=== PATIENT | female | born 1965 | race African-American/Black ===

== ENCOUNTER 2017-06-14 22:31 | Emergency (ER) | payer BC | END 2017-06-14 23:33 | disposition left against medical advice (07) | LOC: ERS 22:31 | DX: Z53.21 Procedure and treatment not carried out due to patient leaving prior to being seen by health care provider (principal) ==

== ENCOUNTER 2017-11-04 22:04 | Emergency (ER) | payer SELFPAY ==
[2017-11-04] MEDS ORDERED: Ketorolac Tromethamine 30 MG/ML VIAL ONE (22:58)
[2017-11-04 23:06] LABS: #Basophils 0.1 thou/uL (0.0-0.2); #Eosinphils 0.1 thou/uL (0.0-0.7); #Lymphocytes 2.8 thou/uL (1.20-3.40); #Monocytes 1.1 thou/uL (0.11-0.59); #Neutrophils 3.7 thou/uL (1.40-6.50); %Basophils 1.1 % (0.0-1.0); %Eosinophils 1.4 % (0.0-10.0); %Lymphocytes 36.6 % (21.0-51.0); %Monocytes 13.7 % (0.0-10.0); %Neutrophils 47.1 % (42.0-75.0); Hemoglobin 14.2 g/dL (12.0-16.0); Mean Corpuscular HGB CONC 33.7 g/dL (32.0-36.0); Mean Corpuscular Hemoglobin 31.7 pg (27.0-31.0); Mean Platelet Volume 6.8 fL (7.4-10.4); Platelet Count 284 thou/uL (130-400); RBC Distribution Width 12.8 % (11.5-14.5); White Blood Cell (WBC) Count 7.8 thou/uL (4.8-10.8)
--- NOTE | 2017-11-04 23:15 | RAD ---
PORTABLE CHEST ONE VIEW: 11/04/17 at 11:03 p.m. HISTORY: Cough and shortness of breath. FINDINGS: Comparison is made with the exam of 08/26/15. The heart size is normal. The lungs are expanded without focal areas of consolidation, pneumothorax o r pleural effusions. IMPRESSION: No radiographic evidence of acute cardiopulmonary process. POS: [facility]
[2017-11-04 23:30] LABS: Anion Gap 15 mmol/L (10-20); BUN (Urea Nitrogen) 13 mg/dL (9.8-20.1); CK (CPK) 130 U/L (29-168); Calc. Creatinine Clearance 0 mL/min (70-130); Calcium 9.5 mg/dL (7.8-10.44); Carbon Dioxide 22 mmol/L (22-29); Chloride 106 mmol/L (98-107); Estimated GFR-MDRD 90; Glucose 111 mg/dL (70-105); Potassium 3.8 mmol/L (3.5-5.1); Sodium 139 mmol/L (136-145)
[2017-11-04 23:38] LABS: Troponin I Less than 0.010 ng/mL (< 0.028)
--- NOTE | 2017-11-11 13:12 | EKG ---
Test Reason : Blood Pressure : / mmHG Vent. Rate : 095 BPM Atrial Rate : 095 BPM P-R Int : 138 ms QRS Dur : 066 ms QT Int : 374 ms P-R-T Axes : 055 055 022 degrees QTc Int : 469 ms Normal sinus rhythm Possible Left atrial enlargement Prolonged QT Abnormal ECG Confirmed by ELMIRA WATKINS ([id number]), sports editor GINO VEGA ([id number]) on 11/11/2017 1:11:58 PM Referred By: Confirmed By:ELMIRA WATKINS
== END 2017-11-04 23:50 | disposition home or self-care (01) ==
LOC: ERS 22:04
DX: J40 Bronchitis, not specified as acute or chronic (principal); R07.89 Other chest pain; G43.909 Migraine, unspecified, not intractable, without status migrainosus; E78.5 Hyperlipidemia, unspecified; I10 Essential (primary) hypertension; F17.210 Nicotine dependence, cigarettes, uncomplicated; Z71.6 Tobacco abuse counseling; Z79.899 Other long term (current) drug therapy
CPT/HCPCS: 71045; 80048; 82550; 84484; 85025; 93005; 94640; 96374; 99406; J1885; J7620

== ENCOUNTER 2018-07-30 19:15 | Observation (INO) | payer BC, SELFPAY ==
[~2018-07-30 19:15] MED LIST: ISOVUE-370 76%-LOCM 1 ML ONE
[2018-07-30] MEDS ORDERED: Dexamethasone 4 mg/ml Vial ONE (19:59)
[2018-07-30] MEDS ORDERED: Ketorolac Tromethamine 30 MG/ML VIAL ONE (19:59)
[2018-07-30 20:26] LABS: Hemoglobin 12.8 g/dL (12.0-16.0); Mean Corpuscular HGB CONC 32.9 g/dL (32.0-36.0); Mean Corpuscular Volume 94.2 fL (78.0-98.0); Mean Platelet Volume 7.6 fL (7.4-10.4); Platelet Count 356 thou/uL (130-400); RBC Distribution Width 11.9 % (11.5-14.5); Red Blood Cell (RBC) Count 4.12 mill/uL (4.20-5.40); White Blood Cell (WBC) Count 20.2 thou/uL (4.8-10.8)
[2018-07-30 20:46] LABS: ALT (SGPT) 15 U/L (8-55); AST (SGOT) 12 U/L (5-34); Albumin 3.9 g/dL (3.5-5.0); Alkaline Phosphatase 83 U/L (40-150); Anion Gap 10 mmol/L (10-20); BUN (Urea Nitrogen) 10 mg/dL (9.8-20.1); Bilirubin, Total 0.2 mg/dL (0.2-1.2); Calc. Creatinine Clearance 0 mL/min (70-130); Calcium 9.4 mg/dL (7.8-10.44); Carbon Dioxide 25 mmol/L (22-29); Chloride 104 mmol/L (98-107); Estimated GFR-MDRD Greater than 90; Globulin 4.4 g/dL (2.4-3.5); Glucose 230 mg/dL (70-105); Potassium 3.8 mmol/L (3.5-5.1); Protein, Total 8.3 g/dL (6.0-8.3); Sodium 135 mmol/L (136-145)
[2018-07-30 20:50] LABS: Lymphocytes 24 % (21-51); MDiff Complete? YES; Monocytes 5 % (0-10); Neutrophil 71 % (42-75); PLT Morphology Comment Appears Adequate; RBC Morphology Normal
--- NOTE | 2018-07-30 21:23 | RAD ---
PA AND LATERAL CHEST: HISTORY: Difficulty breathing. FINDINGS: Heart size appears slightly enlarged. Aorta is mildly tortuous. Lungs are clear of infiltrates. Th ere are no signs of failure. IMPRESSION: Minimal cardiomegaly. POS: [facility]
--- NOTE | 2018-07-30 21:28 | CT ---
CT NECK PERFORMED WITH INTRAVENOUS CONTRAST ENHANCEMENT: HISTORY: Sore throat. Right ear pain. FINDINGS: The visualized brain parenchyma is unremarkable. There is what appears to be an empty sella incident ally noted. The parotid and submandibular glands are unremarkable. There is some moderate bilateral symmetric ju gular chain adenopathy, probably reactive in nature. The tonsils appear enlarged. This includes the tonsillar pillars and lingular tonsil, as well as the adenoid regions, causing some slight narrowing to the transverse dimension of the airway at this lev el. The epiglottis is normal in appearance. At the level of the vocal cords, there is a somewhat low attenuation mass, which is probably a polyp. An ENT consultation would be recommended. This does narrow the airway at the level of the true and false cords. The thyroid gland is unremarkable. The lung apices are clear. IMPRESSION: 1. Hypertrophied appearance to the tonsils and adenoid region without signs of any abscess. Parapha ryngeal spaces are clear. 2. Vocal cord lesion, which appears to probably represent a polyp. ENT consultation is recommended. This does narrow the airway at the true and false cord level. POS: [facility]
[2018-07-30] MEDS ORDERED: Acetaminophen 1,000 MG in Premix Bag 1 BAG IVPB SCH (23:30)
[2018-07-31 00:24] VITALS: BMI 46.3
[2018-07-31] MEDS ORDERED: Ondansetron PF 4 MG/2 ML Vial IVP PRN (00:27)
[2018-07-31] MEDS ORDERED: Acetaminophen 325 MG TAB PO PRN (00:27)
[2018-07-31] MEDS ORDERED: Ondansetron ODT 4 MG TAB SL PRN (00:27)
[2018-07-31] MEDS: Sodium Chloride 0.9% 1,000 ML IV SCH ×2 (01:08→09:36)
[2018-07-31] MEDS ORDERED: Chloraseptic Spray 180 ml Bottle PO PRN (01:57)
[2018-07-31] MEDS: Cepastat Lozenges 1 LOZ PO PRN ×2 (09:36→15:17)
[2018-07-31] MEDS ORDERED: AMOXicillin 250 MG CAP PO SCH ×2 (12:00→15:00)
[2018-07-31] MEDS ORDERED: Dexamethasone 1 MG TAB PO SCH ×2 (12:00→17:00)
[2018-07-31 15:01] VITALS: BP 146/75; TEMP 97.8
[2018-08-01] MEDS ORDERED: metFORMIN 500 MG TAB PO SCH (08:00)
--- NOTE | 2018-08-02 06:23 | SS ---
DATE OF ADMISSION: 07/31/2018 DATE OF DISCHARGE: 07/31/2018 PRIMARY CARE PHYSICIAN: She sees provider in [place]. CONSULTANTS: None. PROCEDURE PERFORMED: The patient had a soft tissue neck CT, it showed hypertrophied appearance to the tonsils and adenoid regions without any signs of any abscess. Parapharyngeal spaces are clear. Two vocal cord lesions, which appears to probably represent a polyp. ENT consultation is recommended. Does narrow of the airway of the true and false cord level. The patient had a chest x-ray; impression: Minimal cardiomegaly. CHIEF COMPLAINT: Sore throat, right ear pain and stridor. HOSPITAL COURSE: Ms. Willoughby is a pleasant 53-year-old female, who presented to the emergency room on 07/30/2018 with a complaint of sore throat and right ear pain for the last 2 weeks. Reports on day of admission, she felt like she could not catch her breath. She denies history of any breathing issues. When symptoms initially began, she had a fever and vomiting. Reports that she was a half a pack to a pack a day smoker and quit 7 days ago, reports increase of cough. The patient had a soft tissue CT scan of the neck with findings above. Had some stridor in the emergency room and was given a dose of decadron and some Toradol and felt better. The patient was admitted for observation and further management. The patient was seen and reports that she feels better and has some mild expiratory wheezing. Denies any current nausea or vomiting. Dr. Gonzalez was contacted and stated that he wanted to see the patient in the office. Appointment was scheduled for the following day at 08:15 in the morning, this information was relayed to the patient. The patient was sent home with some amoxicillin. The patient states that she lost her health insurance and has been unable to take any of her blood pressure medications or her statins. She was also noted to have high blood sugar here after the decadron was given, so some metformin was added while her blood sugars remain high. The patient's discharge plan was discussed with Dr. Lara, who agreed with the discharge plan. PAST MEDICAL HISTORY: Includes stomach ulcers, migraines, hyperlipidemia, hypertension, and asthma. PAST SURGICAL HISTORY: None. PSYCH HISTORY: None. SOCIAL HISTORY: Denies any alcohol use. Denies any drug use. Reports she was a 1 to 2 pack a day smoker, quit 7 days ago. CURRENT MEDICATIONS: She is supposed to take the following medications, but has ran out of prescription and has not been to a primary care doctor. 1. Aspirin 81 mg p.o. daily will be continued. 2. Nexium 20 mg p.o. daily. 3. Coreg 6.25 mg p.o. b.i.d. 4. Lisinopril 5 mg p.o. b.i.d. 5. Pravastatin 40 mg p.o. at bedtime. Added on this visit were: 1. Amoxicillin 500 mg p.o. t.i.d. x10 days. 2. Metformin 500 mg p.o. q.a.m. while blood sugars are high due to steroid use. ALLERGIES: NO KNOWN DRUG ALLERGIES. REVIEW OF SYSTEMS: CONSTITUTIONAL: The patient denies any weight loss. EYES: Denies any eye redness, eye discharge or change in vision. ENT: Denies drooling or dysphonia. Does admit to sore throat. Reports that her throat hurts into the right ear. CARDIOVASCULAR: Denies any chest pain or palpitations. RESPIRATORY: Reports cough. Reports mild shortness of breath. Reports stridor. Reports some wheezing. GASTROINTESTINAL: Reports some nausea and vomiting earlier this week. MUSCULOSKELETAL: Denies any changes, deformity or fall. SKIN: Denies any cellulitis or rash. NEUROLOGIC: Denies any paralysis. Denies any focal sensory changes. PSYCHIATRIC: Denies any emotional lability. PHYSICAL EXAMINATION: VITAL SIGNS: Blood pressure 128/75, pulse 63, respirations 18, temperature 98.2, O2 sats are 99% on room air. CONSTITUTIONAL: The patient appears in no distress. She is alert and oriented x3. HEAD: Atraumatic and normocephalic. ENT: Expiratory stridor as noted. Oropharynx is unremarkable. Pharynx, there is no erythema. No exudates. NECK: Normal range of motion. Trachea is midline. RESPIRATORY/CHEST: Mild inspiratory wheeze. Good air movement. Breath sounds are heard x4. CARDIOVASCULAR: Normal heart sounds. Normal rate and rhythm. ABDOMEN: Female. Abdomen is soft and nontender on palpation. BACK: Normal range of motion. No CVA tenderness. EXTREMITIES: Upper extremities; normal range of motion. Motor strength is normal. Pulses intact bilaterally. Lower extremities; normal range of motion. Motor strength is normal. Pulses are present bilaterally. No edema is noted. NEUROLOGIC: The patient is alert and oriented x3. Speech is normal. SKIN: Normal. Dry. Normal in color. LABORATORY DATA: White blood cell count is 20.2, hemoglobin 12.8, hematocrit 38.8. Chemistry: Sodium 135, potassium 3,8. Creatinine is 0.77. BUN is 10. Estimated GFR is 90, glucose is 230. Lactic acid 1.5. Liver enzymes are unremarkable. EKG performed in the ER; normal sinus rhythm, beats per minute 70, no ectopics, ST segments normal, Q waves are normal, axis is normal. CONDITION: The patient's condition is stable. DISPOSITION: Discharged to home. The patient has an appointment with Dr. Gonzalez at 08:15 on 08/01/2018. She is also requested to follow up with [facility] within the next 1 to 2 weeks to ensure she stays on her medications. Job ID: [id number]
--- NOTE | 2018-08-04 12:46 | EKG ---
Test Reason : Blood Pressure : / mmHG Vent. Rate : 070 BPM Atrial Rate : 070 BPM P-R Int : 148 ms QRS Dur : 072 ms QT Int : 428 ms P-R-T Axes : 059 055 027 degrees QTc Int : 462 ms Normal sinus rhythm Normal ECG Confirmed by ANGI NORIEGA ([id number]), assignment desk editor FLEX BRAND ([id number]) on 08/04/2018 12:46:00 PM Referred By: Confirmed By:ANGI NORIEGA
== END 2018-07-31 15:23 | disposition home or self-care (01) ==
LOC: ERS 19:15 → T4-B 07-31 00:10
PROVIDERS: ADMIT Internal Medicine; ATTEND Internal Medicine
DX: J02.9 Acute pharyngitis, unspecified (principal); J35.3 Hypertrophy of tonsils with hypertrophy of adenoids; J38.3 Other diseases of vocal cords; H92.01 Otalgia, right ear; I10 Essential (primary) hypertension; E78.5 Hyperlipidemia, unspecified; J45.909 Unspecified asthma, uncomplicated; G43.909 Migraine, unspecified, not intractable, without status migrainosus; Z87.891 Personal history of nicotine dependence; Z79.82 Long term (current) use of aspirin; Z79.899 Other long term (current) drug therapy
CPT/HCPCS: 70491; 71046; 80053; 83605; 85025; 93005; 94640; 96361; 96365; 96375; 96376; G0378; J0131; J1100; J1885; J7620; J8540

== ENCOUNTER 2018-08-01 17:32 | Inpatient (IN) | payer SELFPAY ==
[2018-08-01] MEDS ORDERED: Sodium Chloride For Inhalation 0.9% 3 ML NEB ONE ×2 (19:36→22:16)
[2018-08-01] MEDS ORDERED: methylPREDNISolone Sod Succ/PF 125 MG/2 ML VIAL ONE (19:48)
[2018-08-01] MEDS ORDERED: Water For Inject, Bacteriostat 30 ML ONE (19:48)
[2018-08-01 19:56] LABS: #Basophils 0.1 thou/uL (0.0-0.2); #Eosinphils 0.1 thou/uL (0.0-0.7); #Monocytes 2.5 thou/uL (0.11-0.59); #Neutrophils 13.1 thou/uL (1.40-6.50); %Basophils 0.5 % (0.0-1.0); %Eosinophils 0.3 % (0.0-10.0); %Lymphocytes 27.5 % (21.0-51.0); %Monocytes 11.7 % (0.0-10.0); Hemoglobin 12.8 g/dL (12.0-16.0); Mean Corpuscular HGB CONC 33.1 g/dL (32.0-36.0); Mean Corpuscular Hemoglobin 31.6 pg (27.0-31.0); Mean Corpuscular Volume 95.3 fL (78.0-98.0); Mean Platelet Volume 7.8 fL (7.4-10.4); Platelet Count 365 thou/uL (130-400); RBC Distribution Width 12.1 % (11.5-14.5); Red Blood Cell (RBC) Count 4.06 mill/uL (4.20-5.40); White Blood Cell (WBC) Count 21.8 thou/uL (4.8-10.8)
[2018-08-01 20:17] LABS: ALT (SGPT) 16 U/L (8-55); AST (SGOT) 13 U/L (5-34); Albumin 3.7 g/dL (3.5-5.0); Alkaline Phosphatase 75 U/L (40-150); Anion Gap 12 mmol/L (10-20); BUN (Urea Nitrogen) 15 mg/dL (9.8-20.1); Bilirubin, Total 0.2 mg/dL (0.2-1.2); Calc. Creatinine Clearance 0 mL/min (70-130); Calcium 8.7 mg/dL (7.8-10.44); Carbon Dioxide 23 mmol/L (22-29); Chloride 107 mmol/L (98-107); Estimated GFR-MDRD Greater than 90; Globulin 4.3 g/dL (2.4-3.5); Glucose 225 mg/dL (70-105); Potassium 3.9 mmol/L (3.5-5.1); Sodium 138 mmol/L (136-145)
[2018-08-01 23:45] VITALS: BMI 44.4
[2018-08-02] MEDS ORDERED: Ondansetron PF 4 MG/2 ML Vial IVP PRN (00:57)
[2018-08-02] MEDS ORDERED: Acetaminophen 325 MG TAB PO PRN (00:57)
[2018-08-02] MEDS ORDERED: Dextrose 50% Abboject 50 ML SYRINGE SLOW IVP PRN (01:04)
[2018-08-02] MEDS ORDERED: HumaLOG 300 UNITS/3 ML VIAL SC PRN (01:04)
[2018-08-02] MEDS ORDERED: Dextrose 5% in Water 1,000 ML IV PRN (01:04)
[2018-08-02 04:30] LABS: #Eosinphils 0.2 thou/uL (0.0-0.7); #Lymphocytes 1.7 thou/uL (1.20-3.40); #Monocytes 0.5 thou/uL (0.11-0.59); #Neutrophils 15.3 thou/uL (1.40-6.50); %Basophils 0.1 % (0.0-1.0); %Eosinophils 0.9 % (0.0-10.0); %Lymphocytes 9.8 % (21.0-51.0); %Monocytes 2.6 % (0.0-10.0); %Neutrophils 86.5 % (42.0-75.0); Hemoglobin 12.5 g/dL (12.0-16.0); Mean Corpuscular HGB CONC 33.3 g/dL (32.0-36.0); Mean Corpuscular Hemoglobin 31.6 pg (27.0-31.0); Mean Corpuscular Volume 94.8 fL (78.0-98.0); Mean Platelet Volume 8.1 fL (7.4-10.4); Platelet Count 369 thou/uL (130-400); RBC Distribution Width 12.1 % (11.5-14.5); Red Blood Cell (RBC) Count 3.97 mill/uL (4.20-5.40); White Blood Cell (WBC) Count 17.6 thou/uL (4.8-10.8)
[2018-08-02 04:41] LABS: Anion Gap 13 mmol/L (10-20); BUN (Urea Nitrogen) 13 mg/dL (9.8-20.1); Calc. Creatinine Clearance 142 mL/min (70-130); Carbon Dioxide 26 mmol/L (22-29); Chloride 104 mmol/L (98-107); Estimated GFR-MDRD Greater than 90; Glucose 285 mg/dL (70-105); Potassium 4.5 mmol/L (3.5-5.1); Sodium 138 mmol/L (136-145)
[2018-08-02] MEDS ORDERED: Morphine 4 MG/ML VIAL SLOW IVP SCH (04:45)
[2018-08-02] MEDS ORDERED: Colchicine 0.6 MG TAB PO SCH (09:00)
[2018-08-02] MEDS ORDERED: Lisinopril 5 MG TAB PO SCH (09:00)
--- NOTE | 2018-08-02 09:04 | HP ---
PRIMARY CARE DOCTOR: No PCP. CODE STATUS: The patient is a full code. TIME OF EVALUATION: Around 2200 hours. CHIEF COMPLAINT: Worsening stridor. HISTORY OF PRESENT ILLNESS: This is a 53-year-old female patient with a past medical history of stomach ulcers, migraine, hyperlipidemia, hypertension, asthma, came to the hospital after having worsening stridor and sore throat and difficulty speaking. The patient has had this problem for the past 2 weeks[address] She had seen Dr. Gonzalez today, who recommended surgery due to a polyp in the vocal cord. She reported that her symptoms have gotten very severe, she is having some difficulty breathing, very audible stridor. No alleviating factors. REVIEW OF SYSTEMS: CONSTITUTIONAL: No fever, no chills or generalized weakness. RESPIRATORY: No cough. The patient has a sore throat, also has some stridor that is audible, and some shortness of breath because of these problems. CARDIOVASCULAR: No chest pain or palpitation. GASTROINTESTINAL: No nausea; no vomiting, diarrhea, or abdominal pain. BR[employer]BER: No dizziness, headache, or feeling lightheaded. GENITOURINARY: No burning on urination. EXTREMITIES: No leg swelling. All other systems were reviewed and negative, except for the findings mentioned above. PAST MEDICAL HISTORY: As mentioned in the HPI. FAMILY HISTORY: Positive for sister having breast cancer. PAST SURGICAL HISTORY: No surgical history. PSYCHIATRIC HISTORY: No psych history. SOCIAL HISTORY: No alcohol, no drugs. The patient smoked cigarettes 2 packs per day on a daily basis; reported she quit 3 days ago. ALLERGIES: NO KNOWN DRUG ALLERGIES REPORTED. MEDICATIONS: None. PHYSICAL EXAMINATION: VITAL SIGNS: On presentation, blood pressure 156/102 with heart rate 78, respiratory rate was 28, temperature was 98, pain was 10/10, and oxygen saturation was 100% on room air. GENERAL APPEARANCE: The patient is alert, oriented, in mild distress due to the stridor. HEENT: Eyes, normal conjunctivae. Moist oral mucosa. Anicteric. No JVD. RESPIRATORY: Bilateral air entry. No rales. No wheezing. Symmetric expansion. The patient has audible stridor, both inspiration and expiration. CARDIOVASCULAR: Normal rate. Regular rhythm. No murmurs. No gallops. No edema. ABDOMEN: Soft. Normal bowel sounds. MUSCULOSKELETAL: Baseline range of motion and strength. No tenderness. SKIN: Warm and intact. No burn or rash. No redness. EXTREMITIES: Peripheral pulses are present. Capillary refill seems to be intact. NEURO: No evidence of any new focal weakness. Baseline speech. Cranial nerves seem to be intact. PSYCHIATRIC: The patient is in good mood, not sad. Oriented, optimal judgment. DIAGNOSTIC STUDIES: All records have been reviewed. 1. The patient had a CT neck performed on 07/30/2018, 2 days ago. It reported hypertrophied base of the tonsils with adenoid region without sign of any abscess. Parapharyngeal spaces are clear. 2. Vocal cord lesion, which appears to probably represent a polyp. ENT consultation recommended. This does narrow the airway at the true and false cord level. LABORATORY DATA: Labs were reviewed. The patient has a white count of 21.8, hemoglobin of 12.8, MCV 95.3, platelet count 365. Sodium is 138, potassium 3.9, chloride 107, carbon dioxide 23, anion gap 12, BUN 15, creatinine 0.8. GFR 90. Glucose 235, calcium 9.7, total bilirubin 0.2, AST 13, ALT 16, alkaline phosphatase of 75. Serum total protein 8, albumin 3.7, globulin 4.3, albumin/globulin ratio is 0.9. ASSESSMENT AND PLAN: The patient will be placed in the hospital with the following medical problems; 1. Stridor that is audible. CT showed hypertrophic polyp with narrowing of the airway. ENT has seen the patient here in the ER, and plan is for the patient to go for surgery in the morning, milena follow recommendations. We will monitor in IMCU. 2. Uncontrolled hypertension. May be secondary to acute distress. We will monitor. No need for anything for the patient at this point. 3. Obesity. The patient has been advised to lose weight. 4. Leukocytosis. White count is 21.8. The patient has been receiving steroids in the past few days. 5. Deep venous thromboses prophylaxis. 6. Hyperglycemia. Glucose 235, likely related to use of steroids. We will monitor. We will treat accordingly. Job ID: [id number]
[2018-08-02] MEDS ORDERED: Propofol 500 MG/50 ML VIAL ONE (09:58)
[2018-08-02] MEDS ORDERED: Midazolam HCl 2 mg/2 ml Vial ONE (09:58)
[2018-08-02] MEDS ORDERED: Fentanyl 100 MCG/2 ML VIAL ONE (09:58)
[2018-08-02] MEDS ORDERED: EPINEPHrine 1 MG/ML AMP ONE ×2 (10:02→10:43)
[2018-08-02] MEDS: Carvedilol 6.25 MG TAB PO SCH ×2 (10:03→17:05)
[2018-08-02] MEDS: Ibuprofen 200 MG TAB PO SCH ×2 (10:03→17:05)
[2018-08-02] MEDS ORDERED: Lidocaine 4% Topical Sol 50 ML BOT ONE (10:04)
[2018-08-02] MEDS ORDERED: Promethazine HCl 25 MG/ML VIAL IM PRN (11:10)
[2018-08-02] MEDS ORDERED: Ondansetron HCl/PF 4 MG/2 ML Vial IVP PRN (11:10)
[2018-08-02] MEDS ORDERED: Promethazine HCl 25 MG/ML VIAL SLOW IVP PRN (11:10)
[2018-08-02] MEDS ORDERED: hydrALAZINE 20 MG/ML VIAL ONE (11:24)
[2018-08-02] MEDS ORDERED: Sodium Chloride For Inhalation 0.9% 3 ML NEB ONE (11:36)
[2018-08-02] MEDS ORDERED: Succinylcholine Chloride 20 MG/ML 10 ml SYRINGE FS ONE (11:40)
[2018-08-02] MEDS ORDERED: Ondansetron PF 4 MG/2 ML Vial ONE (11:40)
[2018-08-02] MEDS ORDERED: Dexamethasone 20 MG/5 ML VIAL ONE (11:40)
[2018-08-02] MEDS ORDERED: Lidocaine 1% PF 5 ML VIAL ONE (11:40)
[2018-08-02] MEDS ORDERED: PROPOFOL 200 MG/20 ML VIAL ONE (11:40)
[2018-08-02] MEDS ORDERED: Lidocaine 4% PF 5 ML AMP NEB SCH (11:45)
[2018-08-02 15:11] VITALS: BP 166/106; TEMP 97.4
[2018-08-02] MEDS ORDERED: Atorvastatin Calcium 10 MG TAB PO SCH (21:00)
--- NOTE | 2018-08-03 06:48 | OP ---
DATE OF PROCEDURE: 08/02/2018 PREOPERATIVE DIAGNOSIS: Obstructive laryngeal lesion. POSTOPERATIVE DIAGNOSIS: Obstructive laryngeal lesion. PROCEDURE PERFORMED: Microsuspension laryngoscopy with removal of obstructive laryngeal lesion and biopsy. PROCEDURE IN DETAIL: After consent was obtained, the patient was identified, brought to the operating room and placed on the operating table in supine position. General endotracheal anesthesia was obtained with ventilating endotracheal tube and the patient was positioned for surgery. The patient was able to be ventilated easily during the procedure. The patient was placed in suspension after an operating laryngoscope was placed without difficulty and suspended from the table. We were able to then fully visualize the larynx. Photographs were taken of the lesion which was bulky on the left side and redundant on the right vocal fold as well. Seemed to be unusually pendulous for a typical Joleen's edema, however, did have a definite polypoid characteristic arising from the false cord. Specimen was taken for histologic evaluation to rule out superimposed malignant process. We then used the Tricut blade to remove the bulk of the lesion and as we got closer to the true cord, we switched over and used the [employer] Human Intelligence Blade. Ultimately, topical adrenaline was placed on the lesion to facilitate bleeding and topical lidocaine was applied as well. The patient was then awakened, extubated, and taken to recovery room in stable condition prior to discharge home. Job ID: [id number]
--- NOTE | 2018-08-03 12:33 | DIS ---
DATE OF ADMISSION: 08/01/2018 DATE OF DISCHARGE: 08/02/2018 DISCHARGE DIAGNOSES: 1. Obstructive vocal cord polyp. 2. Stridor secondarily to obstructive vocal cord polyp. 3. Hypertension. 4. Morbid obesity. 5. Diabetes mellitus, type 2. CONSULTATIONS: Dr. Gonzalez, with ENT Service. PERTINENT LAB AND X-RAY FINDINGS: Basic metabolic profile within normal limits. LFTs within normal limits. CBC showed a white blood cell count ranged between 17.[address] of the soft tissues of the neck dated 07/30/2018 showed hypertrophied appearance of the tonsils and adenoid region without abscess. Vocal cord lesion representing a polyp noted. HOSPITAL COURSE: The patient was admitted after presenting with increasing stridor and respiratory distress, receiving inhaled epinephrine x2 doses in addition to IV Solu-Medrol 125 mg. The patient with known vocal cord polyp, evaluated by ENT Service, undergoing resection of the vocal cord polyp on 08/02/2018. Final pathology pending at the time of this dictation. The patient remained clinically stable postoperatively, maintaining O2 saturations greater than 90% on room air. The patient tolerated regular oral intake and overall remained clinically stable postoperatively. I have examined the patient at the time of discharge and discussed followup instructions. The patient overall is clinically stable and ready for discharge on 08/02/2018. DISCHARGE MEDICATIONS: 1. ProAir HFA 2 puffs inhaled q.4 hours p.r.n. 2. Amoxicillin 250 mg p.o. b.i.d. 3. Nexium 20 mg p.o. daily. 4. Ibuprofen 400 mg p.o. b.i.d. p.r.n. 5. Enteric-coated aspirin 81 mg p.o. daily, hold x48 hours. 6. Coreg 6.25 mg p.o. b.i.d. 7. Lisinopril 5 mg p.o. b.i.d. 8. Metformin 500 mg p.o. q.a.m. 9. Pravachol 40 mg p.o. q.h.s. FOLLOWUP: The patient may follow up with the primary care provider of her choice local [facility] given to the patient at the time of discharge. The patient to follow up with Dr. Gonzalez, with ENT Service and to call his office for appointment, time, and date. CONDITION ON DISCHARGE: Stable. ACTIVITY: Ad-arik. DIET: Soft, mechanical. CODE STATUS: Full. DISPOSITION: Home on 08/02/2018. Job ID: [id number]
--- NOTE | 2018-08-04 17:32 | CON ---
DATE OF CONSULTATION: EMERGENCY ROOM CONSULT SUBJECTIVE: Ms. Willoughby presented to the emergency room with difficulty breathing and inspiratory stridor. She had been seen earlier in the day at the office of Dr. Gnozalez. The plan was to help her get ready for surgery, but she felt she was getting worse as she was home, so she checked into the emergency room. She was consulted on the phone by myself and Dr. Carrillo as well. She was given some racemic epinephrine and felt like that has helped her. OBJECTIVE: GENERAL: The patient is well developed and well nourished. VITAL SIGNS: Currently, her vital signs are stable, though she still has some inspiratory wheezing and feeling somewhat short of breath. HEENT: Flexible scope exam reveals the same exam as was done in office earlier that day with polyps surrounding the vocal cords with one large polyp that collapses near the trachea and vocal cords with every inspiration. ASSESSMENT: 1. Vocal cord polyps. 2. Inspiratory wheezing. PLAN: Per instructions by Dr. Carrillo. We will admit to ICU for observation. Dr. Gonzalez to consult tomorrow for possible surgical intervention. Job ID: [id number]
== END 2018-08-02 18:00 | disposition home or self-care (01) | DRG 155 ==
LOC: ERS 17:32 → IMCU/EMU 21:57
PROVIDERS: ADMIT Hospitalist; ATTEND Hospitalist
PROC: 0CBV8ZX Excision of Left Vocal Cord, Via Natural or Artificial Opening Endoscopic, Diagnostic (ICD-10-PCS; principal; 2018-08-02)
DX: J38.1 Polyp of vocal cord and larynx (principal); Z68.41 Body mass index [BMI] 40.0-44.9, adult; R06.1 Stridor; I10 Essential (primary) hypertension; E11.65 Type 2 diabetes mellitus with hyperglycemia; E66.01 Morbid (severe) obesity due to excess calories; R06.03 Acute respiratory distress; F17.210 Nicotine dependence, cigarettes, uncomplicated; E78.5 Hyperlipidemia, unspecified; J45.909 Unspecified asthma, uncomplicated; Z79.82 Long term (current) use of aspirin; Z79.84 Long term (current) use of oral hypoglycemic drugs; Z79.899 Other long term (current) drug therapy
CPT/HCPCS: 36415; 36416; 80048; 80053; 85025; 88305; 94640; 96374; J0171; J0360; J1100; J2001; J2250; J2270; J2405; J2704; J2930; J3010; J7620

== ENCOUNTER 2021-02-23 00:49 | Inpatient (IN) | payer SELFPAY ==
[2021-02-23] MEDS ORDERED: Morphine 4 MG/ML VIAL ONE (01:36)
[2021-02-23 01:51] LABS: Hemoglobin 13.9 g/dL (12.0-16.0); Mean Corpuscular HGB CONC 33.9 g/dL (32.0-36.0); Mean Corpuscular Hemoglobin 31.6 pg (27.0-31.0); Mean Corpuscular Volume 93.1 fL (78.0-98.0); Mean Platelet Volume 9.5 fL (7.4-10.4); Platelet Count 121 thou/uL (130-400); RBC Distribution Width 12.8 % (11.5-14.5); Red Blood Cell (RBC) Count 4.39 mill/uL (4.20-5.40); White Blood Cell (WBC) Count 12.3 thou/uL (4.8-10.8)
[2021-02-23 02:05] LABS: Phosphorus 2.9 mg/dL (2.3-4.7)
[2021-02-23 02:07] LABS: ALT (SGPT) 197 U/L (8-55); AST (SGOT) 251 U/L (5-34); Albumin 3.2 g/dL (3.5-5.0); Alkaline Phosphatase 201 U/L (40-110); Anion Gap 25 mmol/L (10-20); BUN (Urea Nitrogen) 13 mg/dL (9.8-20.1); Bilirubin, Total 0.7 mg/dL (0.2-1.2); Calc. Creatinine Clearance 0 mL/min (70-130); Calcium 8.7 mg/dL (7.8-10.44); Chloride 96 mmol/L (98-107); Globulin 4.5 g/dL (2.4-3.5); Glucose 366 mg/dL (70-105); Lipase 31 U/L (8-78); Magnesium 1.7 mg/dL (1.6-2.6); Potassium 3.9 mmol/L (3.5-5.1); Protein, Total 7.7 g/dL (6.0-8.3); Sodium 125 mmol/L (136-145)
[2021-02-23 02:15] LABS: Carbon Dioxide 8 mmol/L (22-29)
[2021-02-23 02:22] LABS: Lymphocytes 16 % (21-51); MDiff Complete? YES; Monocytes 2 % (0-10); Neutrophil 82 % (42-75); Platelet Morphology Comment Appears Decreased
[2021-02-23 02:37] LABS: Analyzer IN Cardio ER; Base Excess -9.9 mEq/L (-2.0 to +3.0); Chloride (VBG) 97 mmol/L (98-106); Hemoglobin (Hb) 13.7 g/dL (11.7-16.0); Sodium 125.1 mmol/L (133-146); pH (venous) 7.37 (7.32-7.43)
[2021-02-23 02:41] LABS: Actual Bicarbonate (HCO3v) 13 mEq/L (22-28)
[2021-02-23 02:45] LABS: SARS-CoV-2 NAA Rapid Test Not Detected (NotDetected)
[2021-02-23] MEDS ORDERED: INSULIN REGULAR IN 0.9 % NACL 100 UNIT/100 ML BAG ONE ×2 (03:50→14:33)
[2021-02-23] MEDS ORDERED: Piperacillin/Tazobactam 3.375 GM VIAL ONE ×2 (03:54→13:03)
[2021-02-23] MEDS ORDERED: Sodium Chloride 0.9% 1,000 ML IV PRN ×4 (06:36)
[2021-02-23] MEDS ORDERED: D5 1/2 NS w/20 mEq KCL 1,000 ML IV PRN (06:36)
[2021-02-23] MEDS ORDERED: NS 0.9% w/ 20 MEQ KCL 1,000 ML IV PRN ×2 (06:36)
[2021-02-23] MEDS ORDERED: Acetaminophen 325 MG TAB PO PRN (06:36)
[2021-02-23] MEDS ORDERED: Electrolyte Replacement Protocol 1 EACH IVPB SCH (06:36)
[2021-02-23] MEDS ORDERED: Ondansetron PF 4 MG/2 ML Vial IVP PRN (06:36)
[2021-02-23] MEDS ORDERED: Dextrose 5 %-0.45 % NaCl 1,000 ML IV PRN (06:36)
[2021-02-23] MEDS ORDERED: HUMULIN R 100 UNITS in Sodium Chloride 0.9% 100 ML IVPB SCH (06:45)
[2021-02-23] MEDS ORDERED: Magnesium 2 GM/50 ML 2 GM in Premix Bag 1 BAG IVPB SCH (07:00)
[2021-02-23] MEDS ORDERED: D5 1/2 NS w/20 mEq KCL 1,000 ML ONE ×3 (07:11→20:23)
[2021-02-23 07:21] LABS: Hemoglobin A1c Greater than 14.0 % (4.0-6.0)
[2021-02-23 07:38] LABS: Acetaminophen Less than 6.0 mcg/mL (10.0-30.0); Anion Gap 18 mmol/L (10-20); BUN (Urea Nitrogen) 11 mg/dL (9.8-20.1); Calc. Creatinine Clearance 0 mL/min (70-130); Calcium 8.3 mg/dL (7.8-10.44); Carbon Dioxide 13 mmol/L (22-29); Chloride 103 mmol/L (98-107); Glucose 211 mg/dL (70-105); Potassium 3.1 mmol/L (3.5-5.1); Sodium 131 mmol/L (136-145)
[2021-02-23 07:59] LABS: HBCM Index 0.11 S/CO (0-0.79); Hep A IgM AB Non-Reactive (NonReactive); Hep A IgM S/CO 0.14 S/CO (0-0.79); Hep B Surf Ag Non-Reactive S/CO (NonReactive); Hep C IgG Ab Non-Reactive (NonReactive); Hepatitis B Core IgM Abs Non-Reactive (NonReactive)
[2021-02-23] MEDS ORDERED: Magnesium 2 GM/50 ML BAG (IN WATER) ONE (08:06)
[2021-02-23] MEDS ORDERED: Potassium Chloride 20 MEQ TAB PO SCH (08:15)
[2021-02-23] MEDS ORDERED: Potassium Chloride 20 MEQ TAB ONE (08:24)
[2021-02-23] MEDS ORDERED: Famotidine 20 MG TAB ONE (08:55)
[2021-02-23] MEDS: Famotidine 20 MG TAB PO SCH (09:04)
[2021-02-23] MEDS ORDERED: Iopamidol 370 76% 100 ML VIAL ONE (09:23)
[2021-02-23] MEDS ORDERED: Acetaminophen 500 MG TAB ONE ×3 (10:21→22:56)
[2021-02-23] MEDS: Acetaminophen 500 MG TAB PO PRN ×3 (10:25→23:17)
[2021-02-23 11:53] LABS: Anion Gap 17 mmol/L (10-20); BUN (Urea Nitrogen) 9 mg/dL (9.8-20.1); Calc. Creatinine Clearance 0 mL/min (70-130); Calcium 8.4 mg/dL (7.8-10.44); Carbon Dioxide 13 mmol/L (22-29); Chloride 102 mmol/L (98-107); Glucose 195 mg/dL (70-105); Sodium 128 mmol/L (136-145)
[2021-02-23] MEDS ORDERED: Piperacillin/Tazobactam 3.375 GM in Sodium Chloride 0.9% 100 ML IVPB SCH (12:00)
[2021-02-23 15:04] LABS: Bilirubin Negative (Negative); Blood, Urine 1+ (Negative); Clarity Turbid (Clear); Glucose, Urine (Dipstick) 500 mg/dL (Negative); Ketone, Urine Trace mg/dL (Negative); Leukocyte 25 Leu/uL (Negative); Nitrite Negative (Negative); Protein, Urine (Dipstick) 100 mg/dL (Neg-Trace); Squamous Epithelial 0-3 HPF (0-3); Urobilinogen Normal mg/dL (Less than 2); WBC/HPF 0-3 HPF (0-3)
[2021-02-23 15:05] LABS: Bacteria/HPF Rare-Few HPF (None Seen)
[2021-02-23 15:20] LABS: Actual Bicarbonate (HCO3a) 17.5 mEq/L (22-28); Analyzer IN Cardio ER; Base Excess (BEa) -3.9 mEq/L (-2.0 to +3.0); Calcium, Ionized (arterial) 1.16 mmol/L (1.12-1.30); Carboxyhemoglobin (COHb) 0.6 gm% (0.0-3.0); Hemoglobin (Hb) 13.4 g/dL (12.0-16.0); O2 Tension (PaO2), arterial 79.9 mmHg (80.0-100.0); Potassium - ABG Lab 3.97 mmol/L (3.70-5.30); pH, Arterial 7.49 (7.35-7.45)
[2021-02-23 15:22] LABS: CO2 Tension 23.5 mmHg (35.0-45.0)
[2021-02-23 15:23] LABS: ALV-art Gradient 40.455 mmHg (0-20); Puncture Site RBA
[2021-02-23] MEDS ORDERED: traMADol HCl 50 MG TAB ONE (15:34)
[2021-02-23 15:37] LABS: Anion Gap 20 mmol/L (10-20); BUN (Urea Nitrogen) 9 mg/dL (9.8-20.1); Calc. Creatinine Clearance 0 mL/min (70-130); Calcium 8.3 mg/dL (7.8-10.44); Carbon Dioxide 13 mmol/L (22-29); Chloride 104 mmol/L (98-107); Glucose 117 mg/dL (70-105); Potassium 5.8 mmol/L (3.5-5.1); Sodium 131 mmol/L (136-145)
[2021-02-23] MEDS: traMADol HCl 50 MG TAB PO PRN (15:38)
[2021-02-23 15:59] LABS: ALT (SGPT) 169 U/L (8-55); AST (SGOT) 166 U/L (5-34)
[2021-02-23] MEDS ORDERED: Ibuprofen 200 MG TAB ONE (18:36)
[2021-02-23] MEDS: Ibuprofen 200 MG TAB PO PRN (18:41)
[2021-02-23 19:59] LABS: Anion Gap 14 mmol/L (10-20); BUN (Urea Nitrogen) 8 mg/dL (9.8-20.1); Calc. Creatinine Clearance 0 mL/min (70-130); Carbon Dioxide 14 mmol/L (22-29); Chloride 104 mmol/L (98-107); Glucose 188 mg/dL (70-105); Potassium 3.6 mmol/L (3.5-5.1); Sodium 128 mmol/L (136-145)
[2021-02-23 23:10] VITALS: BMI 34.2
[2021-02-23 23:21] LABS: Chloride 105 mmol/L (98-107); Potassium 3.7 mmol/L (3.5-5.1); Sodium 130 mmol/L (136-145)
[2021-02-23 23:22] LABS: Calcium 8.2 mg/dL (7.8-10.44); Glucose 166 mg/dL (70-105)
[2021-02-23 23:23] LABS: Anion Gap 14 mmol/L (10-20); Carbon Dioxide 15 mmol/L (22-29)
[2021-02-23 23:26] LABS: BUN (Urea Nitrogen) 9 mg/dL (9.8-20.1); Calc. Creatinine Clearance 129 mL/min (70-130)
[2021-02-24] MEDS ORDERED: D5 1/2 NS w/20 mEq KCL 1,000 ML ONE ×2 (01:08→05:08)
[2021-02-24] MEDS ORDERED: Ibuprofen 200 MG TAB ONE (01:44)
[2021-02-24] MEDS: Ibuprofen 200 MG TAB PO PRN ×2 (01:45→16:26)
[2021-02-24 02:12] LABS: Anion Gap 12 mmol/L (10-20); BUN (Urea Nitrogen) 11 mg/dL (9.8-20.1); Calc. Creatinine Clearance 129 mL/min (70-130); Calcium 8.1 mg/dL (7.8-10.44); Carbon Dioxide 14 mmol/L (22-29); Chloride 106 mmol/L (98-107); Glucose 233 mg/dL (70-105); Potassium 3.7 mmol/L (3.5-5.1); Sodium 128 mmol/L (136-145)
[2021-02-24 03:53] LABS: Band 47 % (5-11); Hemoglobin 13.4 g/dL (12.0-16.0); Lymphocytes 6 % (21-51); MDiff Complete? YES; Mean Corpuscular HGB CONC 31.6 g/dL (32.0-36.0); Mean Corpuscular Hemoglobin 31.1 pg (27.0-31.0); Mean Corpuscular Volume 98.3 fL (78.0-98.0); Monocytes 4 % (0-10); Neutrophil 43 % (42-75); Platelet Count 100 thou/uL (130-400); Platelet Morphology Comment Appears Decreased; RBC Distribution Width 13.2 % (11.5-14.5); RBC Morphology Normal; Red Blood Cell (RBC) Count 4.32 mill/uL (4.20-5.40); White Blood Cell (WBC) Count 11.5 thou/uL (4.8-10.8)
[2021-02-24 03:55] LABS: ALT (SGPT) 155 U/L (8-55); AST (SGOT) 173 U/L (5-34); Albumin 2.8 g/dL (3.5-5.0); Alkaline Phosphatase 166 U/L (40-110); Anion Gap 15 mmol/L (10-20); BUN (Urea Nitrogen) 11 mg/dL (9.8-20.1); Bilirubin, Direct 0.5 mg/dL (0.1-0.3); Bilirubin, Total 0.6 mg/dL (0.2-1.2); Calc. Creatinine Clearance 129 mL/min (70-130); Calcium 8.3 mg/dL (7.8-10.44); Carbon Dioxide 13 mmol/L (22-29); Chloride 105 mmol/L (98-107); Glucose 195 mg/dL (70-105); Potassium 4.1 mmol/L (3.5-5.1); Protein, Total 6.6 g/dL (6.0-8.3); Sodium 129 mmol/L (136-145)
[2021-02-24] MEDS ORDERED: Dextrose 50% Abboject 50 ML SYRINGE SLOW IVP PRN (07:54)
[2021-02-24] MEDS ORDERED: Dextrose 5% in Water 1,000 ML IV PRN (07:54)
[2021-02-24] MEDS ORDERED: HumaLOG 300 UNITS/3 ML VIAL SC PRN ×2 (07:54)
[2021-02-24] MEDS ORDERED: Ondansetron PF 4 MG/2 ML Vial ONE (08:34)
[2021-02-24] MEDS ORDERED: Aspirin Chewable 81 MG TAB ONE (08:39)
[2021-02-24] MEDS ORDERED: cefTRIAXone\\ROCEPHIN 1 GM VIAL ONE (08:39)
[2021-02-24] MEDS ORDERED: Albuterol 200 PUFF (6.7GM INHALER) INH PRN (08:44)
[2021-02-24] MEDS ORDERED: Lantus 1000 UNITS/10 ML VIAL SC SCH (09:00)
[2021-02-24] MEDS: cefTRIAXone\\ROCEPHIN 1 GM in Sodium Chloride 0.9% 100 ML IVPB SCH (09:01)
[2021-02-24] MEDS: Lactated Ringer's 1,000 ML IV SCH ×3 (10:24→23:54)
[2021-02-24 11:28] LABS: Actual Bicarbonate (HCO3v) 15 mEq/L (22-28); Base Excess -6.6 mEq/L (-2.0 to +3.0); Calcium, Ionized (venous) 1.07 mmol/L (1.16-1.32); Chloride (VBG) 106 mmol/L (98-106); Hemoglobin (Hb) 13.5 g/dL (11.7-16.0); Potassium (VBG) 4.45 mmol/L (3.70-5.30); Sodium 129.5 mmol/L (133-146); pH (venous) 7.45 (7.32-7.43)
[2021-02-24] MEDS: metroNIDAZOLE 500 MG in Premix Bag 1 BAG IVPB SCH ×2 (14:20→21:13)
[2021-02-24] MEDS: traMADol HCl 50 MG TAB PO PRN (21:13)
[2021-02-24] MEDS: Famotidine 20 MG TAB PO SCH ×2 (21:13→23:20)
[2021-02-25] MEDS: Ibuprofen 200 MG TAB PO PRN ×2 (00:55→11:30)
[2021-02-25] MEDS: metroNIDAZOLE 500 MG in Premix Bag 1 BAG IVPB SCH ×2 (04:54→12:29)
[2021-02-25 05:43] LABS: Hemoglobin 12.1 g/dL (12.0-16.0); Lymphocytes 9 % (21-51); MDiff Complete? YES; Mean Corpuscular HGB CONC 35.1 g/dL (32.0-36.0); Mean Corpuscular Hemoglobin 32.7 pg (27.0-31.0); Mean Corpuscular Volume 93.1 fL (78.0-98.0); Mean Platelet Volume 11.1 fL (7.4-10.4); Metamyelocyte 1 % (0-0); Monocytes 1 % (0-10); Neutrophil 89 % (42-75); Platelet Count 105 thou/uL (130-400); Platelet Morphology Comment Appears Adequate; RBC Distribution Width 13.1 % (11.5-14.5); Red Blood Cell (RBC) Count 3.69 mill/uL (4.20-5.40); White Blood Cell (WBC) Count 15.9 thou/uL (4.8-10.8)
[2021-02-25 05:51] LABS: ALT (SGPT) 151 U/L (8-55); AST (SGOT) 163 U/L (5-34); Albumin 2.3 g/dL (3.5-5.0); Alkaline Phosphatase 200 U/L (40-110); Anion Gap 14 mmol/L (10-20); BUN (Urea Nitrogen) 8 mg/dL (9.8-20.1); Bilirubin, Direct 1.5 mg/dL (0.1-0.3); Calc. Creatinine Clearance 146 mL/min (70-130); Calcium 7.9 mg/dL (7.8-10.44); Carbon Dioxide 16 mmol/L (22-29); Chloride 102 mmol/L (98-107); Globulin 3.5 g/dL (2.4-3.5); Glucose 250 mg/dL (70-105); Potassium 3.9 mmol/L (3.5-5.1); Protein, Total 5.8 g/dL (6.0-8.3); Sodium 128 mmol/L (136-145)
[2021-02-25 06:27] LABS: Bacteria/HPF None Seen HPF (None Seen); Bilirubin 1+ (Negative); Blood, Urine Negative (Negative); Clarity Clear (Clear); Glucose, Urine (Dipstick) Greater than 1000 mg/dL (Negative); Ketone, Urine 40 mg/dL (Negative); Leukocyte Negative Leu/uL (Negative); Nitrite Negative (Negative); Protein, Urine (Dipstick) 30 mg/dL (Neg-Trace); RBC/HPF 0-3 HPF (0-3); Specific Gravity, Urine 1.028 (1.002-1.036); Squamous Epithelial 0-3 HPF (0-3); pH, Urine 6.5 (5.0-9.0)
[2021-02-25 06:29] LABS: Urine Culture Reflex Yes Yes
[2021-02-25 06:33] LABS: Amphetamine Not Detected (NotDetected); Barbiturates Screen Not Detected (NotDetected); Benzodiazepine Screen Not Detected (NotDetected); Cocaine Metabolite Screen Not Detected (NotDetected); Medtox Control Line Valid? VALID (VALID); Medtox Reader # READER 1; Methadone Not Detected (NotDetected); Methamphetamine Not Detected (NotDetected); Opiate Screen Not Detected (NotDetected); Oxycodone Screen Not Detected (NotDetected); Phencyclidine (PCP) Not Detected (NotDetected); THC/Cannabinoid Screen Not Detected (NotDetected); Tricyclic Screen Not Detected (NotDetected)
[2021-02-25] MEDS ORDERED: Dextrose 50% Abboject 50 ML SYRINGE SLOW IVP PRN (07:57)
[2021-02-25] MEDS ORDERED: Dextrose 5% in Water 1,000 ML IV PRN (07:57)
[2021-02-25] MEDS ORDERED: HumaLOG 300 UNITS/3 ML VIAL SC PRN ×2 (07:57)
[2021-02-25] MEDS: Famotidine 20 MG TAB PO SCH ×2 (09:46→21:42)
[2021-02-25] MEDS: cefTRIAXone\\ROCEPHIN 1 GM in Sodium Chloride 0.9% 100 ML IVPB SCH (09:46)
[2021-02-25] MEDS: Lantus 1000 UNITS/10 ML VIAL SC SCH ×2 (09:47→21:42)
[2021-02-25] MEDS: Sodium Bicarbonate Tab 325 MG TAB PO SCH ×2 (09:47→21:42)
[2021-02-25] MEDS: guaiFENesin/Codeine 200 mg/20 mg 10 ml Cup PO PRN (13:20)
[2021-02-25] MEDS: HumaLOG 300 UNITS/3 ML VIAL SC SCH ×2 (15:15→17:40)
[2021-02-25] MEDS: Lactated Ringer's 1,000 ML IV SCH (15:34)
[2021-02-25] MEDS ORDERED: Doxycycline 100 MG CAP PO SCH ×2 (18:45→21:00)
[2021-02-25 20:19] LABS: Legionella Urinary Ag Negative (Negative)
[2021-02-26] MEDS: Ibuprofen 200 MG TAB PO PRN (00:19)
[2021-02-26 05:44] LABS: Hemoglobin 11.8 g/dL (12.0-16.0); Mean Corpuscular HGB CONC 34.2 g/dL (32.0-36.0); Mean Corpuscular Hemoglobin 31.8 pg (27.0-31.0); Platelet Count 105 thou/uL (130-400); RBC Distribution Width 13.1 % (11.5-14.5); White Blood Cell (WBC) Count 17.9 thou/uL (4.8-10.8)
[2021-02-26 05:57] LABS: ALT (SGPT) 115 U/L (8-55); AST (SGOT) 107 U/L (5-34); Albumin 2.2 g/dL (3.5-5.0); Alkaline Phosphatase 192 U/L (40-110); Anion Gap 16 mmol/L (10-20); BUN (Urea Nitrogen) 9 mg/dL (9.8-20.1); Bilirubin, Total 2.7 mg/dL (0.2-1.2); Calc. Creatinine Clearance 151 mL/min (70-130); Calcium 7.8 mg/dL (7.8-10.44); Carbon Dioxide 16 mmol/L (22-29); Chloride 102 mmol/L (98-107); Globulin 3.5 g/dL (2.4-3.5); Glucose 190 mg/dL (70-105); Potassium 3.5 mmol/L (3.5-5.1); Protein, Total 5.7 g/dL (6.0-8.3); Sodium 130 mmol/L (136-145)
[2021-02-26 06:18] LABS: Band 32 % (5-11); Lymphocytes 7 % (21-51); MDiff Complete? YES; Monocytes 7 % (0-10); Neutrophil 51 % (42-75); Platelet Morphology Comment Appears Decreased; Reactive Lymphocytes 3 % (0-10)
[2021-02-26] MEDS: guaiFENesin/Codeine 200 mg/20 mg 10 ml Cup PO PRN ×3 (06:32→17:18)
[2021-02-26] MEDS ORDERED: Potassium Chloride 20 MEQ TAB PO SCH (08:15)
[2021-02-26 08:22] LABS: Ref Lab Test Ordered RICKETTSIA PCR; Reference Lab Name LABCORP
[2021-02-26 08:24] LABS: Ref Lab Test Ordered RICKETTSIA AB; Reference Lab Name LABCORP
[2021-02-26] MEDS ORDERED: Doxycycline 100 MG CAP PO SCH (09:00)
[2021-02-26] MEDS: Sodium Bicarbonate Tab 325 MG TAB PO SCH ×2 (09:28→20:40)
[2021-02-26] MEDS: Aspirin 81 mg Enteric Coated Tablet PO SCH (09:29)
[2021-02-26] MEDS: Famotidine 20 MG TAB PO SCH (09:30)
[2021-02-26] MEDS: Lactated Ringer's 1,000 ML IV SCH ×3 (09:32→12:48)
[2021-02-26] MEDS: HumaLOG 300 UNITS/3 ML VIAL SC SCH ×2 (09:32→11:02)
[2021-02-26] MEDS: Lantus 1000 UNITS/10 ML VIAL SC SCH (09:35)
[2021-02-26] MEDS ORDERED: Dextrose 5% in Water 1,000 ML IV PRN (11:53)
[2021-02-26] MEDS ORDERED: HumaLOG 300 UNITS/3 ML VIAL SC PRN (11:53)
[2021-02-26] MEDS ORDERED: Dextrose 50% Abboject 50 ML SYRINGE SLOW IVP PRN (11:53)
[2021-02-26] MEDS ORDERED: Pantoprazole 40 MG VIAL IVP SCH (13:00)
[2021-02-26] MEDS ORDERED: Doxycycline Hyclate 100 MG in Sodium Chloride 0.9% 250 ML 250 ML IVPB SCH (16:00)
[2021-02-26] MEDS: HumaLOG 300 UNITS/3 ML VIAL SC PRN (17:32)
[2021-02-27] MEDS: Lactated Ringer's 1,000 ML IV SCH ×2 (00:24→08:51)
[2021-02-27] MEDS: Ibuprofen 200 MG TAB PO PRN ×3 (00:24→19:46)
[2021-02-27 05:25] LABS: Hemoglobin 11.2 g/dL (12.0-16.0); Mean Corpuscular HGB CONC 35.5 g/dL (32.0-36.0); Mean Corpuscular Hemoglobin 32.8 pg (27.0-31.0); Mean Corpuscular Volume 92.3 fL (78.0-98.0); Mean Platelet Volume 10.9 fL (7.4-10.4); Platelet Count 114 thou/uL (130-400); RBC Distribution Width 13.2 % (11.5-14.5); Red Blood Cell (RBC) Count 3.42 mill/uL (4.20-5.40)
[2021-02-27 05:47] LABS: Band 29 % (5-11); Eosinophils 1 % (0-10); Lymphocytes 13 % (21-51); MDiff Complete? YES; Metamyelocyte 1 % (0-0); Monocytes 3 % (0-10); Neutrophil 50 % (42-75); Platelet Morphology Comment Appears Decreased; Reactive Lymphocytes 3 % (0-10); Toxic Granulation SLIGHT; Vacuoles SLIGHT; White Blood Cell (WBC) Count 22.8 thou/uL (4.8-10.8)
[2021-02-27] MEDS: HumaLOG 300 UNITS/3 ML VIAL SC PRN ×3 (06:06→17:46)
[2021-02-27 06:23] LABS: ALT (SGPT) 91 U/L (8-55); AST (SGOT) 92 U/L (5-34); Alkaline Phosphatase 203 U/L (40-110); Anion Gap 14 mmol/L (10-20); BUN (Urea Nitrogen) 12 mg/dL (9.8-20.1); Bilirubin, Total 2.7 mg/dL (0.2-1.2); Calc. Creatinine Clearance 139 mL/min (70-130); Calcium 7.6 mg/dL (7.8-10.44); Carbon Dioxide 18 mmol/L (22-29); Chloride 103 mmol/L (98-107); Globulin 3.6 g/dL (2.4-3.5); Glucose 145 mg/dL (70-105); Potassium 3.7 mmol/L (3.5-5.1); Protein, Total 5.6 g/dL (6.0-8.3); Sodium 131 mmol/L (136-145)
[2021-02-27] MEDS: Aspirin 81 mg Enteric Coated Tablet PO SCH (08:44)
[2021-02-27] MEDS: Sodium Bicarbonate Tab 325 MG TAB PO SCH ×2 (08:44→19:47)
[2021-02-27] MEDS: Pantoprazole 40 MG VIAL IVP SCH (08:45)
[2021-02-27] MEDS: metFORMIN 500 MG TAB PO SCH (10:42)
[2021-02-27] MEDS: traMADol HCl 50 MG TAB PO PRN (11:35)
[2021-02-27] MEDS: Carvedilol 6.25 MG TAB PO SCH (16:15)
[2021-02-27] MEDS: guaiFENesin/Codeine 200 mg/20 mg 10 ml Cup PO PRN (17:45)
[2021-02-27] MEDS: Fluticasone Propionate Nasal Spray 16 gm Bottle NASAL SCH (19:46)
[2021-02-28] MEDS: traMADol HCl 50 MG TAB PO PRN (02:33)
[2021-02-28] MEDS: guaiFENesin/Codeine 200 mg/20 mg 10 ml Cup PO PRN (02:40)
[2021-02-28 05:09] LABS: Hemoglobin 10.5 g/dL (12.0-16.0); Mean Corpuscular HGB CONC 35.1 g/dL (32.0-36.0); Mean Corpuscular Hemoglobin 32.6 pg (27.0-31.0); Mean Corpuscular Volume 92.8 fL (78.0-98.0); Mean Platelet Volume 10.8 fL (7.4-10.4); Platelet Count 126 thou/uL (130-400); RBC Distribution Width 13.4 % (11.5-14.5); Red Blood Cell (RBC) Count 3.21 mill/uL (4.20-5.40); White Blood Cell (WBC) Count 27.6 thou/uL (4.8-10.8)
[2021-02-28 05:13] LABS: Anion Gap 12 mmol/L (10-20); BUN (Urea Nitrogen) 16 mg/dL (9.8-20.1); Calc. Creatinine Clearance 135 mL/min (70-130); Calcium 7.9 mg/dL (7.8-10.44); Carbon Dioxide 18 mmol/L (22-29); Chloride 105 mmol/L (98-107); Glucose 150 mg/dL (70-105); Potassium 3.7 mmol/L (3.5-5.1); Sodium 131 mmol/L (136-145)
[2021-02-28 05:41] LABS: Band 32 % (5-11); Lymphocytes 9 % (21-51); MDiff Complete? YES; Monocytes 5 % (0-10); Neutrophil 53 % (42-75)
[2021-02-28] MEDS: Carvedilol 6.25 MG TAB PO SCH ×2 (08:21→16:42)
[2021-02-28] MEDS: Sodium Bicarbonate Tab 325 MG TAB PO SCH (08:22)
[2021-02-28] MEDS: metFORMIN 500 MG TAB PO SCH (08:22)
[2021-02-28] MEDS: Pantoprazole 40 MG VIAL IVP SCH (08:22)
[2021-02-28] MEDS: Fluticasone Propionate Nasal Spray 16 gm Bottle NASAL SCH (08:22)
[2021-02-28] MEDS: Aspirin 81 mg Enteric Coated Tablet PO SCH (08:22)
[2021-02-28 11:55] VITALS: BP 111/59; TEMP 97.9
[2021-02-28] MEDS: HumaLOG 300 UNITS/3 ML VIAL SC PRN (12:30)
[2021-02-28] MEDS ORDERED: Doxycycline 100 MG CAP PO SCH (21:00)
== END 2021-02-28 16:35 | disposition home or self-care (01) | DRG 638 ==
LOC: ERS 00:49 → ERHOLD 03:51 → 2SE 02-24 12:36
PROVIDERS: ADMIT Internal Medicine; ATTEND Internal Medicine
DX: E11.10 Type 2 diabetes mellitus with ketoacidosis without coma (principal); N39.0 Urinary tract infection, site not specified; I42.9 Cardiomyopathy, unspecified; I10 Essential (primary) hypertension; E78.5 Hyperlipidemia, unspecified; E11.9 Type 2 diabetes mellitus without complications; K52.9 Noninfective gastroenteritis and colitis, unspecified; R74.8 Abnormal levels of other serum enzymes; K21.9 Gastro-esophageal reflux disease without esophagitis; Z20.822 Contact with and (suspected) exposure to COVID-19; I25.10 Atherosclerotic heart disease of native coronary artery without angina pectoris; J45.909 Unspecified asthma, uncomplicated; G43.909 Migraine, unspecified, not intractable, without status migrainosus; Z79.4 Long term (current) use of insulin; Z79.82 Long term (current) use of aspirin; Z79.899 Other long term (current) drug therapy; Z87.891 Personal history of nicotine dependence
CPT/HCPCS: 0240U; 36415; 36416; 36600; 71045; 71046; 74177; 76705; 80048; 80053; 80074; 80076; 80143; 80306; 81001; 81003; 81015; 82010; 82550; 82805; 83036; 83605; 83690; 83735; 84100; 84450; 84460; 84484; 85025; 87040; 87086; 87899; 94640; 96365; 96374; 96375; 80307; C9113; J0696; J1815; J2270; J2405; J2543; J3475; J3480; J3490; J7050; J7620; Q9967